=== PATIENT | female | born 1960 | race African-American/Black ===

== ENCOUNTER 2022-04-28 08:00 | Emergency (ER) | payer MEDICAID ==
[~2022-04-28] VITALS: Ht 172.7 cm; Wt 72.0 kg
[2022-04-28] MEDS ORDERED: IBUPROFEN 400MG TABLET PO ONE (08:45)
[2022-04-28 09:10] VITALS: BP 157/86
[2022-04-28] MEDS ORDERED: ACETAMINOPHEN 325MG TABLET PO ONE (09:30)
[2022-04-28] MEDS ORDERED: IBUP-2028 MT (11:16)
== END 2022-04-28 11:36 | disposition home or self-care (01) ==
LOC: ER 08:00
DX: B34.9 Viral infection, unspecified (principal); Z88.6 Allergy status to analgesic agent; Z98.890 Other specified postprocedural states
CPT/HCPCS: 71046; 87804; 99284

== ENCOUNTER 2022-10-27 09:57 | Emergency (ER) | payer MEDICAID ==
[~2022-10-27] VITALS: Ht 172.7 cm; Wt 74.0 kg
[~2022-10-27 09:57] MED LIST: IBUP-2028 MT
[2022-10-27] MEDS ORDERED: ACETAMINOPHEN 325MG TABLET PO ONE (12:00)
[2022-10-27] MEDS ORDERED: HYDROCODONE/ACETAMINOPHEN 5/325MG TABLET PO ONE (12:00)
[2022-10-27 13:02] LABS: CLARITY URINE CLEAR (CLEAR); COLOR URINE YELLOW (YELLOW); KETONES URINE NEGATIVE (NEGATIVE); LEUKOCYTE ESTERASE URINE NEGATIVE (NEGATIVE); NITRITE URINE NEGATIVE (NEGATIVE); OCCULT BLOOD URINE NEGATIVE (NEGATIVE); PH URINE 7.5 (4.5-8.0); PROTEIN URINE NEGATIVE (NEGATIVE); SPECIFIC GRAVITY URINE 1.014 (1.005-1.030); UROBILINOGEN URINE 0.2 E.U./dL (0.2-1.0)
[2022-10-27] MEDS ORDERED: IBUP-1523 MT (13:55)
[2022-10-27] MEDS ORDERED: TOPUD MT (13:55)
[2022-10-27] MEDS ORDERED: P50 MT (13:55)
[2022-10-27 14:19] VITALS: BP 134/61
== END 2022-10-27 14:20 | disposition home or self-care (01) ==
LOC: ER 09:57
DX: M54.2 Cervicalgia (principal); R68.84 Jaw pain; Z98.890 Other specified postprocedural states; Z88.6 Allergy status to analgesic agent
CPT/HCPCS: 72050; 81003; 99283

== ENCOUNTER 2023-03-16 06:40 | Emergency (ER) | payer MEDICAID ==
[~2023-03-16] VITALS: Ht 165.1 cm; Wt 73.0 kg
[~2023-03-16 06:40] MED LIST changes: +IBUP-1523 MT; +P50 MT; +TOPUD MT
[2023-03-16 06:52] VITALS: O2SAT 100
[2023-03-16 08:25] LABS: BASOPHILS % 0.4 % (0.0-2.0); EOSINOPHILS % 1.6 % (0.0-5.0); HEMATOCRIT. 38.2 % (36.0-48.0); HEMOGLOBIN. 12.3 g/dL (12.0-16.0); LYMPHOCYTES % 21.6 % (20.0-50.0); MEAN CORPUSCULAR HEMOGLOBIN 27.4 pg (28.0-32.0); MEAN CORPUSCULAR HGB CONC 32.1 g/dL (31.0-37.0); MEAN CORPUSCULAR VOLUME 85.4 fL (81.0-99.0); MEAN PLATELET VOLUME 7.4 fl (7.4-10.4); MONOCYTES % 8.8 % (2.0-8.0); NEUTROPHILS % 67.6 % (40.0-76.0); PLATELET 299 x1000/uL (130-400); RED BLOOD CELL COUNT 4.48 mill/uL (4.2-5.4); WHITE BLOOD COUNT 6.4 x1000/uL (4.5-11.0)
[2023-03-16 08:39] LABS: CHLORIDE 109 mEq/L (98-107); INDEX HEMOLYSI 1 (1-3); INDEX ICTERIC 1 (1-4); INDEX LIPEMIC 1 (1-3); POTASSIUM 4.3 mEq/L (3.5-5.1); SODIUM 140 mEq/L (136-145)
[2023-03-16 08:48] LABS: ALANINE AMINOTRANSFERASE 21 IU/L (13-61); ALBUMIN 3.8 g/dL (3.4-5.0); ASPARTATE AMINOTRANSFERASE 17 IU/L (15-37); BILIRUBIN TOTAL 0.4 mg/dL (0.1-1.0); CALCIUM 8.8 mg/dL (8.5-10.1); CARBON DIOXIDE 29 mEq/L (21-32); CREATININE 1.1 mg/dL (0.6-1.3); GLUCOSE 86 mg/dL (70-105); NT PRO B-TYPE NATRIURETIC PEP 57 pg/mL (5-125); PROTEIN TOTAL 7.8 g/dL (6.0-8.3); TROPONIN I HIGH SENSITIVITY 6 ng/L (<54); UREA NITROGEN BLOOD 18 mg/dL (7-21)
[2023-03-16] MEDS ORDERED: TRAM50TA3 MT (08:57)
[2023-03-16 10:25] VITALS: BP 130/88; PULSE 72; RESP 20; TEMP 98
== END 2023-03-16 11:04 | disposition home or self-care (01) ==
LOC: ER 06:55
DX: S00.93XA Contusion of unspecified part of head, initial encounter (principal); W06.XXXA Fall from bed, initial encounter; Y93.89 Activity, other specified; Y92.89 Other specified places as the place of occurrence of the external cause; Y99.8 Other external cause status
CPT/HCPCS: 36415; 71045; 73110; 73130; 80053; 83880; 84484; 85025; 99285